=== PATIENT | female | born 1995 | race Asian ===

== ENCOUNTER 2024-06-21 18:02 | Observation (INO) | payer OTHER, SELFPAY ==
[2024-06-21 19:01] VITALS: BP 124/75; PULSE 86
[2024-06-21 19:04] VITALS: BMI 32.9
--- NOTE | 2024-06-21 19:04 | OBADM ---
This patient, October, admitted to the OB room [facility] for observation. Patient/family oriented to hospital policies and general routines including ID bracelet, bed and alarms, visiting hours, pain management, procedures, bathroom and other care routines, personal items, smoking policy, room service/diet, and visiting hours. Patient/Family are encouraged to report perceived risks to care and to ask questions if they do not understand what they are told or what they should do.
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
[2024-06-21 19:22] LABS: Add Urine Microscopic? NO; Appearance Urine Clear (Clear); Bilirubin Urine Negative (Negative); Blood Urine Negative (Negative); Color Urine Yellow (Yellow); Glucose Urine UA Negative (Negative); Ketones Urine 1+ mg/dL (Negative); Leukocyte Esterase Ur Negative LEU/UL (Negative); Nitrate Urine Negative (Negative); Protein Urine Negative (Negative); Specific Grav Ur 1.006 (1.001-1.035); Urobilinogen Urine 0.2 mg/dL (<2.0)
--- NOTE | 2024-06-21 19:34 | PC.NURSE ---
192-RN notified Tess HERNANDEZ of patient arrival, patient complaints, and patient history. RN notified of FHT tracing, uterine activity, and urine lab results. gave orders to d/c patient.
[2024-06-21 19:37] VITALS: BP 114/65; PULSE 92; TEMP 36.7
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
== END 2024-06-21 19:45 | disposition home or self-care (01) ==
PROVIDERS: Admitting Provider Obstetrics & Gynecology; Visit Provider Obstetrics & Gynecology
DX: O99.891 Other specified diseases and conditions complicating pregnancy (principal); V89.2XXA Person injured in unspecified motor-vehicle accident, traffic, initial encounter; Z3A.33 33 weeks gestation of pregnancy
CPT/HCPCS: 81003; G0378; G0379